=== PATIENT | male | born 1990 | race Caucasian/White ===

== ENCOUNTER 2019-10-22 22:27 | Emergency (ER) | payer OTHER ==
[~2019-10-22] VITALS: Ht 170.2 cm; Wt 72.7 kg
[2019-10-22 22:40] VITALS: BP 127/83; TEMP 98.4
[2019-10-23 00:47] VITALS: PULSE 96
== END 2019-10-23 00:47 | disposition home or self-care (01) ==
LOC: COL.ER 22:27
DX: L03.012 Cellulitis of left finger (principal); F17.210 Nicotine dependence, cigarettes, uncomplicated